=== PATIENT | female | born 1995 | race Caucasian/White ===

== ENCOUNTER 2020-11-23 21:36 | Emergency (ER) | payer BC ==
[~2020-11-23] VITALS: Ht 165 cm; Wt 86.2 kg
[2020-11-23] MEDS ORDERED: CITA10TA7 (21:57)
[2020-11-23] MEDS ORDERED: ONDA4TAB11 (21:57)
[2020-11-23] MEDS ORDERED: DEXT20TA8 (21:57)
[2020-11-23] MEDS ORDERED: TR1C15 (21:57)
[2020-11-23] MEDS ORDERED: LEVO88TA54 (21:57)
[2020-11-23] MEDS ORDERED: LEVO88TA68 (21:57)
[2020-11-23] MEDS ORDERED: NORE-106 (21:57)
[2020-11-23] MEDS ORDERED: MONT10TA97 (21:57)
[2020-11-23] MEDS ORDERED: LACTATED RINGERS 1,000 ML IV SCH ×2 (22:15→23:30)
--- NOTE | 2020-11-23 22:20 | ED Headache ---
General Chief Complaint: Head/Cervical Problems Stated Complaint: NECK PAIN/POSITIVE MONO TEST Nursing Triage Note: posterior neck pain, n/v Nursing Sepsis Screen: No Definite Risk Source: patient Exam Limitations: no limitations History of Present Illness Date Seen by Provider: Nov 23, 2020 Time Seen by Provider: 22:20 Initial Comments Patient is a 24-year-old female who presents to the emergency department today with a chief complaint of nausea and vomiting for 24 hours, headache and neck pain for at least 24 hours. Patient states that she started feeling badly around 4 to 5 days ago. She noticed a "lump" in her neck on the right and presented to urgent care this last Saturday and was diagnosed with mononucleosis. Patient states that her throat feels dry. It does not really hurt. Patient denies any diarrhea but is having stomach upset. Patient states she represented to urgent care today and was given a prescription of Zofran. Her last dose of this was around 4:00 this afternoon. Patient states she has not really vomited since then but still feels "queasy". Patient states this afternoon that she started experiencing some dysuria. And she states that her urine is really "dark". She denies any abnormal vaginal discharge and states that she started her period today. Patient states that she has been running "low-grade" fever. All other review of systems reviewed and negative except as stated above. Timing/Duration: 24 hours Severity/Quality: moderate Location: frontal Allergies and Home Medications Allergies Coded Allergies: iodine (Verified Allergy, Unknown, 11/23/20) Patient Home Medication List Home Medication List Reviewed: Yes Review of Systems Review of Systems Constitutional: see HPI Eyes: No Symptoms Reported Ears, Nose, Mouth, Throat: throat swelling Respiratory: no symptoms reported Cardiovascular: no symptoms reported Gastrointestinal: nausea Genitourinary: no symptoms reported : No Musculoskeletal: no symptoms reported Skin: no symptoms reported Psychiatric/Neurological: No Symptoms Reported All Other Systems Reviewed Negative Unless Noted: Yes Past Azhgrhk-Ggjqff-Reoxxz Hx Patient Social History Alcohol Use: Occasionally Uses Recreational Drug Use: No Smoking Status: Never a Smoker 2nd Hand Smoke Exposure: No Recent Foreign Travel: No Contact w/Someone Who Travel: No Recent Infectious Disease Expo: No Recent Hopitalizations: No Immunizations Up To Date Tetanus Booster (TDap): Unknown Seasonal Allergies Seasonal Allergies: Yes Past Medical History Surgeries: Yes Orthopedic Respiratory: Yes Asthma Cardiac: No Neurological: No : No Genitourinary: No Gastrointestinal: No Musculoskeletal: No Endocrine: Yes Hypothyroidsim HEENT: No Cancer: No Psychosocial: No Integumentary: No Blood Disorders: No Physical Exam Vital Signs Vital Signs - First Documented 11/23/20 21:45 Temp 37.0 Pulse 130 Resp 18 B/P (MAP) 139/94 (109) Pulse Ox 95 O2 Delivery Room Air Capillary Refill : Less Than 3 Seconds Height, Weight, BMI Height: '" Weight: lbs. oz. kg; 31.00 BMI Method: General Appearance: WD/WN, no apparent distress HEENT: PERRL/EOMI, pharyngeal erythema, tonsillar exudate Neck: full range of motion, supple, lymphadenopathy (R), lymphadenopathy (L) Cardiovascular: regular rate, rhythm Respiratory: lungs clear, normal breath sounds, no respiratory distress Gastrointestinal: non tender, soft Extremities: non-tender, normal inspection Psychiatric: alert, oriented x 3 Crainal Nerves: normal hearing, normal speech, PERRL Motor/Sensory: no motor deficit, no sensory deficit Skin: normal color, warm/dry Progress/Results/Core Measures Results/Orders Lab Results Laboratory Tests Test 11/23/20 22:15 11/23/20 23:06 Range/Units Sodium Level 136 135-145 MMOL/L Potassium Level 4.2 3.6-5.0 MMOL/L Chloride Level 100 98-107 MMOL/L Carbon Dioxide Level 19 L 21-32 MMOL/L Anion Gap 17 H 5-14 MMOL/L Blood Urea Nitrogen 11 7-18 MG/DL Creatinine 0.90 0.60-1.30 MG/DL Estimat Glomerular Filtration Rate > 60 BUN/Creatinine Ratio 12 Glucose Level 83 70-105 MG/DL Calcium Level 8.8 8.5-10.1 MG/DL Thyroid Stimulating Hormone (TSH) 2.03 0.35-4.94 UIU/ML Urine Color YELLOW Urine Clarity CLEAR Urine pH 6.0 5-9 Urine Specific [place] 1.025 H 1.016-1.022 Urine Protein NEGATIVE NEGATIVE Urine Glucose (UA) NEGATIVE NEGATIVE Urine Ketones 3+ H NEGATIVE Urine Nitrite POSITIVE H NEGATIVE Urine Bilirubin 2+ H NEGATIVE Urine Urobilinogen 4.0 < = 1.0 MG/DL Urine Leukocyte Esterase NEGATIVE NEGATIVE Urine RBC (Auto) NEGATIVE NEGATIVE Urine RBC NONE /HPF Urine WBC 0-2 /HPF Urine Squamous Epithelial Cells 2-5 /HPF Urine Crystals NONE /LPF Urine Bacteria LARGE H /HPF Urine Casts NONE /LPF Urine Mucus NEGATIVE /LPF Urine Culture Indicated YES Micro Results Microbiology 11/23/20 Urine Culture - Final, Complete Escherichia coli My Orders Orders - DIMAS ESCALERA MD Ed Iv/Invasive Line Start (11/23/20 22:09) Lactated Ringers (Lr 1000 Ml Iv Solution (11/23/20 22:15) Thyroid Stimulating Hormone (11/23/20 22:22) Basic Metabolic Panel (11/23/20 22:22) Ketorolac Injection (Toradol Injection) (11/23/20 22:30) Orphenadrine Inj (Ed Only) (Norflex Inje (11/23/20 22:30) Ua Culture If Indicated (11/23/20 22:39) Ondansetron Injection (Zofran Injectio (11/23/20 22:45) Lactated Ringers (Lr 1000 Ml Iv Solution (11/23/20 23:30) Urine Culture (11/23/20 23:06) Ceftriaxone For Iv Use (Rocephin For I (11/23/20 23:45) Medications Given in ED Vital Signs/I&O 11/23/20 11/23/20 21:45 23:59 Temp 37.0 36.6 Pulse 130 89 Resp 18 18 B/P (MAP) 139/94 (109) 111/79 Pulse Ox 95 97 O2 Delivery Room Air Room Air Blood Pressure Mean: 109 Progress Progress Note : Time: 23:34 Progress Note Patient's serum chemistry is within normal limits mildly increased anion gap likely secondary to dehydration. Patient has nitrite positive and large bacteria on her urinalysis. Will treat with 1 g of Rocephin here in the ED for simple cystitis. Patient is hydrated with 2 L of lactated Ringer's here and is feeling better after her Toradol and Norflex. Supportive care at home including NSAIDs and Tylenol and lots of fluids. Return precautions given. All questions were sought and answered. Departure Impression Primary Impression: Headache Qualified Codes: R51 - Headache Disposition: 01 HOME, SELF-CARE Condition: Stable Departure-Patient Inst. Decision time for Depature: 23:35 Referrals: [facility] Patient Instructions: Dehydration, Adult (DC), Headache, Adult (DC), Urinary Tract Infection, Adult ED Add. Discharge Instructions: Drink plenty of fluids to stay well-hydrated. Alternate Aleve and Tylenol as needed at home for aches and pains. We have treated you here in the emergency department for urinary tract infec tion. Return to the emergency room if you have any return of symptoms, worsening pain high fever or any other emergent concerning symptoms. DIMAS ESCALERA MD Nov 23, 2020 22:19
[2020-11-23] MEDS ORDERED: KETOROLAC 30 MG/ML VIAL IVP ONE (22:30)
[2020-11-23] MEDS ORDERED: ORPHENADRINE 60 MG/2 ML (NORFLEX) AMP (ED ONLY) IV ONE (22:30)
[2020-11-23] MEDS ORDERED: ONDANSETRON 4 MG/2 ML (SDV) Z0FRAN IVP ONE (22:45)
[2020-11-23 23:02] LABS: CHLORIDE 100 MMOL/L (98-107); POTASSIUM 4.2 MMOL/L (3.6-5.0); SODIUM 136 MMOL/L (135-145)
[2020-11-23 23:04] LABS: CALCIUM 8.8 MG/DL (8.5-10.1); GLUCOSE 83 MG/DL (70-105)
[2020-11-23 23:06] LABS: CARBON DIOXIDE 19 MMOL/L (21-32)
[2020-11-23 23:08] LABS: GFR ESTIMATED > 60
[2020-11-23 23:09] LABS: BUN/CREATININE RATIO 12
[2020-11-23 23:14] LABS: CLARITY,URINE CLEAR; COLOR,URINE YELLOW; GLUCOSE, URINE (UA) NEGATIVE (NEGATIVE); KETONES,URINE 3+ (NEGATIVE); LEUKOCYTE ESTERASE ,URINE NEGATIVE (NEGATIVE); NITRITE,URINE POSITIVE (NEGATIVE); PROTEIN,URINE NEGATIVE (NEGATIVE)
[2020-11-23 23:19] LABS: BILIRUBIN,URINE 2+ (NEGATIVE)
[2020-11-23 23:26] LABS: BACTERIA,URINE LARGE /HPF; WBC,URINE 0-2 /HPF
[2020-11-23] MEDS ORDERED: cefTRIAXone FOR IV USE 1,000 MG in WATER (STERILE) FOR INJECTION 10 ML IV ONE (23:45)
[2020-11-23 23:59] VITALS: BP 111/79
== END 2020-11-23 23:59 | disposition home or self-care (01) ==
LOC: ER 21:40
DX: R51.9 Headache, unspecified (principal); M54.2 Cervicalgia; R11.2 Nausea with vomiting, unspecified; R30.0 Dysuria; R50.9 Fever, unspecified; Z88.8 Allergy status to other drugs, medicaments and biological substances
CPT/HCPCS: 36415; 80048; 81000; 84443; 87077; 87088; 87186

== ENCOUNTER 2021-09-29 11:45 | Outpatient (CLI) | payer BC ==
[~2021-09-29] VITALS: Ht 165.1 cm; Wt 81.6 kg
[2021-09-29 11:40] VITALS: BP 125/84
[~2021-09-29 11:45] MED LIST: CITA10TA7; DEXT20TA8; LEVO88TA54; LEVO88TA68; MONT10TA32; NORE-106; ONDA4TAB11; TR1C15
[2021-09-29] MEDS ORDERED: ONDANSETRON 4 MG/2 ML (SDV) Z0FRAN IV PRN (12:30)
[2021-09-29] MEDS ORDERED: diphenhydrAMINE 50 MG/ML INJ (BENADRYL) IV PRN (12:30)
[2021-09-29] MEDS ORDERED: ACETAMINOPHEN 500 MG TAB (TYLENOL) PO PRN (12:30)
[2021-09-29] MEDS ORDERED: CASIRIVIMAB/IMDEVIMAB 1,200 MG in NS (IVPB) 250 ML IV ONE (12:30)
[2021-09-29] MEDS ORDERED: EPINEPHrine INJECTION 1 MG/ML AMP IM PRN (12:30)
[2021-09-29 13:46] VITALS: BP 132/80
== END 2021-09-29 14:12 | disposition home or self-care (01) ==
LOC: INFUSION 11:45
PROVIDERS: ATTEND Family Medicine
DX: U07.1 COVID-19 (principal)

== ENCOUNTER 2022-05-24 13:26 | Emergency (ER) | payer BC ==
[~2022-05-24] VITALS: Ht 165.1 cm; Wt 84.0 kg
[~2022-05-24 13:26] MED LIST changes: -CITA10TA7; +CITA10TA9; +MONT-40; -MONT10TA32
[2022-05-24 13:30] VITALS: BP 151/107
[2022-05-24 13:42] LABS: BILIRUBIN,URINE NEGATIVE (NEGATIVE); CLARITY,URINE TURBID; COLOR,URINE YELLOW; GLUCOSE, URINE (UA) NEGATIVE (NEGATIVE); KETONES,URINE NEGATIVE (NEGATIVE); LEUKOCYTE ESTERASE ,URINE 1+ (NEGATIVE); NITRITE,URINE POSITIVE (NEGATIVE); PH,URINE 6.5 (5-9); PROTEIN,URINE 2+ (NEGATIVE)
[2022-05-24] MEDS ORDERED: NS IV 1000 ML 1,000 ML IV STA (13:43)
[2022-05-24 13:48] LABS: BASOPHILS % (AUTO) 0 % (0-10); EOSINOPHILS # (AUTO) 0.4 10^3/uL (0.0-0.3); EOSINOPHILS % (AUTO) 4 % (0-10); HEMATOCRIT 40 % (35-52); HEMOGLOBIN 14.3 g/dL (11.5-16.0); LYMPHOCYTES # (AUTO) 1.9 10^3/uL (1.0-4.0); LYMPHOCYTES % (AUTO) 18 % (12-44); MEAN CORPUSCULAR HEMOGLOBIN 32 pg (25-34); MEAN CORPUSCULAR HGB CONC 36 g/dL (32-36); MEAN CORPUSCULAR VOLUME 91 fL (80-99); MEAN PLATELET VOLUME 9.5 fL (9.0-12.2); MONOCYTES # (AUTO) 0.5 10^3/uL (0.0-1.0); MONOCYTES % (AUTO) 5 % (0-12); NEUTROPHILS # (AUTO) 7.4 10^3/uL (1.8-7.8); NEUTROPHILS % (AUTO) 72 % (42-75); PLATELET COUNT 319 10^3/uL (130-400); WHITE BLOOD COUNT 10.2 10^3/uL (4.3-11.0)
--- NOTE | 2022-05-24 13:49 | ED General ---
General Chief Complaint: Back Problems Stated Complaint: KIDNEY STONES Nursing Triage Note: Patient reports right flank pain since yesterday. She states she has had kidney stones in the past and the pain was similar to what she is feeling now. She reports coming from the walk-in clinic, states she had a UA and toradol injection there. Source of Information: Patient History of Present Illness Date Seen by Provider: May 24, 2022 Time Seen by Provider: 13:31 Initial Comments 26-year-old female presenting with complaints of right flank pain that started last night. She states that she does have a history of kidney stones as well as kidney infections. She had gone through urgent care to be checked to see if lik e like there was an infection or if there was blood and possible stone and she states that the told her she did have leukocyte esterase and some blood in her urine. They felt like she possibly had an obstructing kidney stone and told her to come to the emergency department. She was given a shot of Toradol there at urgent care prior to leaving. She denies any nausea, vomiting, fever, chills, vaginal bleeding, vaginal discharge, diarrhea, abdominal surgeries. She has had no recent abdominal trauma. She states her last menstrual period was 6 weeks ago when she had taken some control pills [id number]. She states that she does drink a lot of soda pop and not enough water. She does not have a urologist or provider she follows with for her kidney stones. She states last 1 was about a year ago when she had severe pain but then it passed quickly and she never went to see anybody Timing/Duration: 12-24 Hours (Started last night) Severity: Moderate Modifying Factors: improves with Medication (Toradol shot from urgent care seems to have helped the pain) Associated Systoms: No Chest Pain, No Cough, No Diaphoresis, No Fever/Chills, No Headaches, No Loss of Appetite, No Malaise, No Nausea/Vomiting, No Rash, No Seizure, No Shortness of Air, No Syncope, No Weakness Allergies and Home Medications Allergies Coded Allergies: iodine (Verified Allergy, Unknown, 09/29/21) Patient Home Medication List Home Medication List Reviewed: Yes Citalopram Hydrobromide (Citalopram HBr) 10 Mg Tablet, (Reported) Entered as Reported by: WINSTON PERALES on 11/23/20 4187 Dextroamphetamine/Amphetamine (Amphetamine Salts 20 mg Tablet) 20 Mg Tablet, (Reported) Entered as Reported by: WINSTON PERALES on 11/23/202156 Levothyroxine Sodium (Euthyrox) 88 Mcg Tablet, (Reported) Entered as Reported by: WINSTON PERALES on 11/23/202156 Levothyroxine Sodium (Levothyroxine Sodium) 88 Mcg Tablet, (Reported) Entered as Reported by: WINSTON PERALES on 11/23/202156 Montelukast Sodium (Montelukast Sodium) 10 Mg Tablet, (Reported) Entered as Reported by: WINSTON PERALES on 11/23/202156 Nitrofurantoin Monohyd/M-Cryst (Macrobid 100 mg Capsule) 100 Mg Capsule, 1 TAB PO BID Prescribed by: GRACE ADKINS on 05/24/221422 Norethindrone-E.estradiol-Iron (Junel Fe 24 Tablet) 1 Each Tablet, (Reported) Entered as Reported by: WINSTON PERALES on 11/23/202156 Ondansetron (Ondansetron Odt) 4 Mg Tab.rapdis, (Reported) Entered as Reported by: WINSTON PERALES on 11/23/202156 Triamcinolone Acet (Triamcinolone Acetonide 0.1% Cream) 15 Gm Cr, (Reported) Entered as Reported by: WINSTON PERALES on 11/23/202156 Review of Systems Review of Systems Constitutional: see HPI EENTM: no symptoms reported Respiratory: no symptoms reported Cardiovascular: no symptoms reported Gastrointestinal: see HPI, abdominal pain (Right flank pain); No nausea, No vomiting Genitourinary: decreased output, dysuria : No Musculoskeletal: back pain (Right flank pain wrapping around from her right kidney area) Skin: No rash Psychiatric/Neurological: No Symptoms Reported Hematologic/Lymphatic: No Symptoms Reported Past Mmbjolz-Duebgx-Piwqad Hx Patient Social History Tobacco Use?: No Substance use?: No Alcohol Use?: Yes Alcohol Frequency: Rarely Pt feels they are or have been: No Immunizations Up To Date Tetanus Booster (TDap): Unknown Seasonal Allergies Seasonal Allergies: Yes Past Medical History Surgery/Hospitalization HX: narcolepsy, hypothyroidism, kidney stones Surgeries: Yes Orthopedic (Ankle and shoulder) Respiratory: Yes Asthma Cardiac: No Neurological: No Last Menstrual Period: April 12, 2022 Female Reproductive Disorders: Denies Genitourinary: Yes Kidney Infection, Kidney Stones Gastrointestinal: No Musculoskeletal: No Endocrine: Yes Hypothyroidsim HEENT: No Cancer: No Psychosocial: No Integumentary: No Blood Disorders: No Physical Exam Vital Signs Vital Signs - First Documented 05/24/22 13:30 Temp 36.6 Pulse 114 Resp 16 B/P (MAP) 151/107 (122) Pulse Ox 97 O2 Delivery Room Air Capillary Refill : Less Than 3 Seconds Height, Weight, BMI Height: '" Weight: lbs. oz. kg; 30.00 BMI Method: General Appearance: No Apparent Distress, WD/WN HEENT: PERRL/EOMI, Pharynx Normal Neck: Full Range of Motion, Normal Inspection, Non Tender, Supple Respiratory: Chest Non Tender, Lungs Clear, Normal Breath Sounds, No Accessory Muscle Use, No Respiratory Distress Cardiovascular: Normal Peripheral Pulses, Tachycardia Gastrointestinal: Normal Bowel Sounds, No Pulsatile Mass, Soft; No Distended, No Guarding, No Rebound; Tenderness (Right flank and right CVA) Rectal: Deferred Back: CVA Tenderness (R) Extremity: Normal Capillary Refill, Normal Inspection, No Calf Tenderness, No Pedal Edema Neurologic/Psychiatric: Alert, Oriented x3, weapons officer naval activity II-XII Norm as Tested Skin: Normal Color, Warm/Dry Progress/Results/Core Measures Suspected Sepsis SIRS Temperature: Pulse: 114 Respiratory Rate: 16 Laboratory Tests 05/24/22 13:37: White Blood Count 10.2 Blood Pressure 151 /107 Mean: 122 Laboratory Tests 05/24/22 13:37: Creatinine 0.88, Platelet Count 319, Total Bilirubin 0.4 Results/Orders Lab Results Laboratory Tests Test 05/24/22 13:30 05/24/22 13:37 Range/Units Urine Color YELLOW Urine Clarity TURBID Urine pH 6.5 5-9 Urine Specific [place] >=1.030 1.016-1.022 Urine Protein 2+ H NEGATIVE Urine Glucose (UA) NEGATIVE NEGATIVE Urine Ketones NEGATIVE NEGATIVE Urine Nitrite POSITIVE H NEGATIVE Urine Bilirubin NEGATIVE NEGATIVE Urine Urobilinogen 0.2 < = 1.0 MG/DL Urine Leukocyte Esterase 1+ H NEGATIVE Urine RBC (Auto) 1+ H NEGATIVE Urine RBC 0-2 /HPF Urine WBC 25-50 H /HPF Urine Squamous Epithelial Cells RARE /HPF Urine Crystals NONE /LPF Urine Bacteria TRACE /HPF Urine Casts NONE /LPF Urine Mucus SMALL H /LPF Urine Culture Indicated YES White Blood Count 10.2 4.3-11.0 10^3/uL Red Blood Count 4.43 3.80-5.11 10^6/uL Hemoglobin 14.3 11.5-16.0 g/dL Hematocrit 40 35-52 % Mean Corpuscular Volume 91 80-99 fL Mean Corpuscular Hemoglobin 32 25-34 pg Mean Corpuscular Hemoglobin Concent 36 32-36 g/dL Red Cell Distribution Width 11.7 10.0-14.5 % Platelet Count 319 130-400 10^3/uL Mean Platelet Volume 9.5 9.0-12.2 fL Immature Granulocyte % (Auto) 0 % Neutrophils (%) (Auto) 72 42-75 % Lymphocytes (%) (Auto) 18 12-44 % Monocytes (%) (Auto) 5 0-12 % Eosinophils (%) (Auto) 4 0-10 % Basophils (%) (Auto) 0 0-10 % Neutrophils # (Auto) 7.4 1.8-7.8 10^3/uL Lymphocytes # (Auto) 1.9 1.0-4.0 10^3/uL Monocytes # (Auto) 0.5 0.0-1.0 10^3/uL Eosinophils # (Auto) 0.4 H 0.0-0.3 10^3/uL Basophils # (Auto) 0.0 0.0-0.1 10^3/uL Immature Granulocyte # (Auto) 0.0 0.0-0.1 10^3/uL Sodium Level 141 135-145 MMOL/L Potassium Level 3.9 3.6-5.0 MMOL/L Chloride Level 103 98-107 MMOL/L Carbon Dioxide Level 25 21-32 MMOL/L Anion Gap 13 5-14 MMOL/L Blood Urea Nitrogen 11 7-18 MG/DL Creatinine 0.88 0.60-1.30 MG/DL Estimat Glomerular Filtration Rate 94 BUN/Creatinine Ratio 13 Glucose Level 134 H 70-105 MG/DL Calcium Level 9.7 8.5-10.1 MG/DL Corrected Calcium 8.5-10.1 MG/DL Total Bilirubin 0.4 0.1-1.0 MG/DL Aspartate Amino Transf (AST/SGOT) 18 5-34 U/L Alanine Aminotransferase (ALT/SGPT) 11 0-55 U/L Alkaline Phosphatase 79 40-136 U/L Total Protein 8.2 6.4-8.2 GM/DL Albumin 4.7 H 3.2-4.5 GM/DL Lipase 32 8-78 U/L My Orders Orders - GRACE ADKINS MD Urine Bedside (05/24/22 13:33) Ua Culture If Indicated (05/24/22 13:33) Comprehensive Metabolic Panel (05/24/22 13:42) Lipase (05/24/22 13:42) Ed Iv/Invasive Line Start (05/24/22 13:42) Cbc With Automated Diff (05/24/22 13:42) Ct Abdomen/Pelvis Wo (05/24/22 13:42) Ns Iv 1000 Ml (Sodium Chloride 0.9%) (05/24/22 13:43) Urine Culture (05/24/22 13:30) Ceftriaxone 1 Gm Pre-Mix (Rocephin 1 Gm (05/24/22 13:54) Vital Signs/I&O 05/24/22 13:30 Temp 36.6 Pulse 114 Resp 16 B/P (MAP) 151/107 (122) Pulse Ox 97 O2 Delivery Room Air Capillary Refill : Less Than 3 Seconds Blood Pressure Mean: 122 Progress Note #1: Progress Note Give normal saline IV fluid for hydration. Check labs and urinalysis as well as bedside urine . Order CT scan of the abdomen pelvis to check for signs of kidney stones or pathology in her right flank that could be causing her pain. She states her pain is 5 out of 10 and improving with the medicine given at urgent care. Will defer any additional pain medicine for now unless her pain starts getting worse. Differential diagnosis includes kidney stone, urinary tract infection, gall bladder attack, appendicitis, colitis, diverticulitis, ovarian cyst Progress Note #2: Time: 14:13 Progress Note CBC shows no acute significant abnormality. Her urine test was negative. Urinalysis showed leukocyte Estrace with nitrites and bacteria for urinary tract infection. There was no blood. CT scan shows small punctate 1 to 2 mm kidney stones in the right kidney. There are some mild dilation and stranding of the proximal ureter. There is no definite kidney stone in the ureter or in the bladder. Treat with Rocephin 1 gm IV based on prior microbiology on urine culture from 2020. Progress Note #3: Time: 14:28 Progress Note Chemistry does not show any acute significant normality. Will discharge on Macrobid and encouraged her to take acetaminophen and NSAIDs to help with any continued pain. Stressed the importance of stopping drinking soda pop. Counseled on follow-up and return precautions. Diagnostic Imaging Diagonstic Imaging: CT Plain Films/CT/US/NM/MRI: abdomen, pelvis Comments NAME: [facility] REC#: [id number] PT STATUS: REG ER : 1995 PHYSICIAN: GRACE ADKINS MD ADMIT DATE: 05/24/22/ER FS Draft Date of Exam:05/24/22 CT ABDOMEN/PELVIS WO PROCEDURE: CT abdomen and pelvis without contrast. TECHNIQUE: Multiple contiguous axial images were obtained through the abdomen and pelvis without the use of intravenous contrast. Auto Exposure Controls were utilized during the CT exam to meet ALARA standards for radiation dose reduction. INDICATION: Right flank pain. History of kidney stones. COMPARISON: None. FINDINGS: There are a few punctate 1 to 2 mm renal stones in the right kidney. No ureteral stones. No hydronephrosis. However, there is mild thickening of the proximal right ureter and subtle adjacent stranding. The decompressed urinary bladder is negative. Negative left kidney and ureter. Small amount of free fluid in the pelvis may be physiologic. Reproductive structures are grossly unremarkable. The lung bases are clear. The liver, gallbladder, pancreas, spleen, adrenals and appendix are negative. No free intraperitoneal air. No evidence of bowel obstruction. No lymphadenopathy. No acute osseous findings. IMPRESSION: 1. Mild thickening of the proximal right ureter and adjacent stranding without winston hydronephrosis or obstructing renal stone. There are a few 1 to 2 mm nonobstructing renal stones in the right kidney. Findings could be due to a recently passed renal stone versus infectious/inflammatory process. 2. Small amount of free fluid in the pelvis may be physiologic. Reproductive structures are grossly unremarkable. Dictated on workstation # [id number] Dict: 05/24/22 1400 Trans: 05/24/22 1411 CV [id number] Interpreted by: JACK ESTRADA MD Electronically signed by: Reviewed: Reviewed by Me Departure Impression Primary Impression: Acute cystitis without hematuria Additional Impressions: Acute right flank pain History of kidney stones Recurrent kidney stones Disposition: HOME, SELF-CARE Condition: Stable Departure-Patient Inst. Decision time for Depature: 14:29 Referrals: MARINA CASTRO (PCP) Primary Care Physician Patient Instructions: Flank Pain ED, Urinary Tract Infection, Adult ED, Kidney Stone Diet, Kidney Stone, Adult ED Add. Discharge Instructions: Drink more water and avoid Soda and Pop as the carbonated and caffeinated drinks contribute to more kidney stones forming. Take the full course of antibiotics to treat for UTI. Check back with clinic if having continued concerns. You currently have a few 1 mm and 2 mm kidney stones in the right kidney but they do not see any in the Ureter from your kidney to the bladder. All discharge instructions reviewed with patient and/or family. Voiced understanding. Scripts Nitrofurantoin Monohyd/M-Cryst (Macrobid 100 mg Capsule) 100 Mg Capsule 1 TAB PO BID for UTI for 7 Days, #14 CAP 0 Refills Prov: GRACE ADKINS MD 05/24/22 Work/School Note: Work Release Form Date Seen in the Emergency Department: May 24, 2022 Return to Work: May 25, 2022 Restrictions: No Restrictions GRACE ADKINS MD May 24, 2022 13:49
[2022-05-24 13:50] LABS: RBC,URINE 0-2 /HPF
[2022-05-24 13:51] LABS: BACTERIA,URINE TRACE /HPF; SQUAMOUS EPITHELIAL CELL,UR RARE /HPF; WBC,URINE 25-50 /HPF
[2022-05-24] MEDS ORDERED: cefTRIAXone 1 GM PRE-MIX 50 ML IV STA (13:54)
--- NOTE | 2022-05-24 14:11 | Diagnostic Imaging Report ---
PROCEDURE: CT abdomen and pelvis without contrast. TECHNIQUE: Multiple contiguous axial images were obtained through the abdomen and pelvis without the use of intravenous contrast. Auto Exposure Controls were utilized during the CT exam to meet ALARA standards for radiation dose reduction. INDICATION: Right flank pain. History of kidney stones. COMPARISON: None. FINDINGS: There are a few punctate 1 to 2 mm renal stones in the right kidney. No ureteral stones. No hydronephrosis. However, there is mild thickening of the proximal right ureter and subtle adjacent stranding. The decompressed urinary bladder is negative. Negative left kidney and ureter. Small amount of free fluid in the pelvis may be physiologic. Reproductive structures are grossly unremarkable. The lung bases are clear. The liver, gallbladder, pancreas, spleen, adrenals and appendix are negative. No free intraperitoneal air. No evidence of bowel obstruction. No lymphadenopathy. No acute osseous findings. IMPRESSION: 1. Mild thickening of the proximal right ureter and adjacent stranding without winston hydronephrosis or obstructing renal stone. There are a few 1 to 2 mm nonobstructing renal stones in the right kidney. Findings could be due to a recently passed renal stone versus infectious/inflammatory process. 2. Small amount of free fluid in the pelvis may be physiologic. Reproductive structures are grossly unremarkable. Dictated by: Dictated on workstation # [id number]
[2022-05-24 14:14] LABS: ALANINE AMINOTRANSFERASE 11 U/L (0-55); ALBUMIN 4.7 GM/DL (3.2-4.5); ALKALINE PHOSPHATASE 79 U/L (40-136); BILIRUBIN,TOTAL 0.4 MG/DL (0.1-1.0); BUN/CREATININE RATIO 13; CALCIUM 9.7 MG/DL (8.5-10.1); CARBON DIOXIDE 25 MMOL/L (21-32); CHLORIDE 103 MMOL/L (98-107); CREATININE SERUM 0.88 MG/DL (0.60-1.30); GFR ESTIMATED 94; GLUCOSE 134 MG/DL (70-105); LIPASE 32 U/L (8-78); POTASSIUM 3.9 MMOL/L (3.6-5.0); SODIUM 141 MMOL/L (135-145); TOTAL PROTEIN 8.2 GM/DL (6.4-8.2)
[2022-05-24] MEDS ORDERED: NITR-65 PO (14:23)
== END 2022-05-24 14:39 | disposition home or self-care (01) ==
LOC: EDUNIT# 13:26 → ER FS 13:29
DX: N30.00 Acute cystitis without hematuria (principal); Z87.442 Personal history of urinary calculi
CPT/HCPCS: 36415; 74176; 80053; 81000; 83690; 84703; 85025; 87077; 87088; 87186

== ENCOUNTER → 2022-06-27 | Outpatient (CLI) | payer BC ==
[~2022-06-27] MED LIST changes: +NITR-65 PO
== END ==
LOC: LABNPT 14:41
PROVIDERS: ATTEND Family Medicine
DX: Z01.419 Encounter for gynecological examination (general) (routine) without abnormal findings (principal); Z30.9 Encounter for contraceptive management, unspecified
CPT/HCPCS: 87491; 87591